=== PATIENT | male | born 1975 | race Two or more races ===

== ENCOUNTER 2017-05-14 14:14 | Observation (INO) | payer MEDICAID, OTHER ==
[~2017-05-14] VITALS: Ht 175.3 cm; Wt 102.1 kg
[2017-05-14 15:34] LABS: Basophils # (auto) 0.1 uL; Basophils % (auto) 0.7 % (0.0-2.0); CONDITION Y; Eosinophils # (auto) 0 uL; Eosinophils % (auto) 0.1 % (0.0-7.0); Hematocrit 49.1 % (41.0-53.0); Hemoglobin 16.9 g/dL (13.5-17.5); Lymphocytes # (auto) 2.7 uL; Lymphocytes % (auto) 26.6 % (10.0-50.0); Mean Corpuscular Hgb Conc. 34.4 g/dL (32.0-36.0); Mean Platelet Volume 9.1 fL (7.4-10.4); Monocytes # (auto) 0.7 uL; Monocytes % (auto) 7.2 % (0.0-12.0); Neutrophils # (auto) 6.5 uL; Neutrophils % (auto) 65.4 % (37.0-80.0); Platelet Count (auto) 382 10^3/uL (140-450); Red Cell Distribution Width 13.1 % (11.6-16.0)
[2017-05-14 15:36] LABS: Albumin 4.1 g/dL (3.4-5.0); BUN/Creatinine Ratio 14.3; Bilirubin, Total 0.6 mg/dL (0.2-1.0); Calcium 9.5 mg/dL (8.5-10.1); Potassium 4.4 mmol/L (3.5-5.1); Total Protein 8.5 g/dL (6.4-8.2)
[2017-05-14 15:48] LABS: Urine RBC None Seen /hpf (0 - 3)
[2017-05-14 16:21] LABS: Urine Bilirubin Negative (Negative); Urine Blood Negative /uL (Negative); Urine Color Yellow (Yellow); Urine Glucose Normal (Normal); Urine Ketone TRACE (Negative); Urine Mucus FEW (None Seen); Urine Nitrite Negative (Negative); Urine pH 5.5 (5.0-8.0)
[2017-05-14] MEDS ORDERED: SODIUM CHLORIDE 0.9% 1,000 ML IVB ONE (16:26)
[2017-05-14] MEDS ORDERED: ONDANSETRON HCL 4 MG/2 ML VIAL IV ONE (16:30)
[2017-05-14 17:00] LABS: Magnesium 2.5 mg/dL (1.6-2.6)
[2017-05-14 17:02] LABS: INR 0.97 (0.9-1.15); Partial Thromboplastin Time 29.9 sec (22.64-33.71); Prothrombin Time 10.6 sec (9.37-12.3)
[2017-05-14 18:02] VITALS: BP 103/84
== END 2017-05-14 19:37 | disposition home or self-care (01) | DRG 244 ==
LOC: ER 14:20 → OVERFLOW 16:28 → ER 19:37
PROVIDERS: ADMIT Family Medicine; ATTEND Family Medicine
DX: K57.30 Diverticulosis of large intestine without perforation or abscess without bleeding (principal); B19.20 Unspecified viral hepatitis C without hepatic coma; R79.89 Other specified abnormal findings of blood chemistry
CPT/HCPCS: 36415; 71010; 74176; 80053; 81001; 82150; 83690; 83735; 85025; 85610; 85730; 96361; 96374; 99285; G0378; J2405; J7030